=== PATIENT | female | born 1980 | race Caucasian/White ===

== ENCOUNTER 2016-08-14 14:32 | Emergency (ER) | payer OTHER ==
[~2016-08-14] VITALS: Ht 172.7 cm; Wt 93.4 kg
[~2016-08-14 14:32] MED LIST: CYCLOBENZAPRINE10 M1 PO; GABAPENTIN300 M2 PO; METHYLPREDNISOLO4 M2 PO; NAPROXEN500 M2 PO; TRAMADOL HCL50 M1 PO; TRAZODONE HCL50 M1 PO
--- NOTE | 2016-08-14 15:47 | ED GI/GU/ABDOMINAL COMPLAINT ---
History of Present Illness General Chief Complaint: Nausea, Vomiting, Diarrhea Stated Complaint: N/V/D Source: patient Exam Limitations: no limitations Vital Signs & Intake/Output Vital Signs & Intake/Output Vital Signs Date Time Temp Pulse Resp B/P Pulse O2 O2 Flow FiO2 Ox Delivery Rate 08/14 2218 97.5 76 18 106/58 98 Room Air 08/14 1838 97.5 73 18 104/57 98 08/14 1438 97.1 100 18 120/76 98 Room Air Allergies Coded Allergies: amoxicillin (Intermediate, GI UPSET 04/05/16) benzonatate (From TESSALON PERLES) (Intermediate, OVER-SEDATED 04/05/16) hydrocodone (From VICODIN) (Intermediate, GI UPSET 04/05/16) Triage Note: PT COMPLAINS OF N/V SINCE YESTERDAY.STATES THAT SHE MISSED HER PERIOD LAST WEDNESDAY. Triage Nurses Notes Reviewed? yes LMP (ages 10-50): 07/06/16 ? Y Is pt currently ? No HPI: Patient is a 36 year old female presents complaining of nausea, vomiting, diarrhea onset yesterday morning. Vomiting every 20-30 minutes since onset. 2- 3 episodes of diarrhea since onset. Diarrhea is a pale color. Unable to keep anything down since onset. Nausea is currently severe. Mild improvement with a dose of zofran yesterday that was left over from previous prescription. Burning left upper quadrant pain onset after patient began vomiting. Patient has not been able to urinate today. LMP 07/06/16. Denies fevers, sick contacts, recent travel, hematemesis, hematochezia. (ADONIS CAVANAUGH,) Reconcile Medications Naproxen 500 MG TABLET 1 TAB PO BID PAIN (Reported) Ondansetron HCl (Zofran) 4 MG TABLET 1 TAB PO Q6-8P PRN nausea Tramadol HCl 50 MG TABLET 1 TAB PO BIDP PRN pain (BALTA KEANE,KAILEY) Past History Travel History Traveled to [place] past 21 day No Medical History Any Pertinent Medical History? 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 No (MICHAEL ROYAL) Review of Systems Review of Systems Constitutional: Reports: malaise, weakness. Denies: chills, fever. EENTM: Reports: no symptoms. Respiratory: Denies: cough, short of breath. Cardiovascular: Denies: chest pain. GI: Reports: see HPI. Genitourinary: Reports: no symptoms. Denies: dysuria, hematuria. Musculoskeletal: Reports: back pain (chronic). Skin: Reports: no symptoms. Neurological/Psychological: Reports: no symptoms. Hematologic/Endocrine: Reports: no symptoms. Immunologic/Allergic: Reports: no symptoms. (MICHAEL ROYAL) Physical Exam Physical Exam General Appearance: alert, awake Head: atraumatic, normal appearance Eyes: Bilateral: normal appearance, PERRL, EOMI. Ears, Nose, Throat, Mouth: hearing grossly normal, dry mucous membranes Neck: normal inspection, supple, full range of motion Respiratory: normal breath sounds, no respiratory distress, lungs clear Cardiovascular: mild tachycardia, regular rhythm, no appreciable murmur Gastrointestinal: normal bowel sounds, soft, non-tender, negative White sign, negative McBurney's point tenderness, negative Rovsing sign Back: normal inspection, normal range of motion Extremities: normal range of motion Neurologic/Psych: no motor/sensory deficits, awake, alert, oriented x 3, normal mood/affect Skin: intact, normal color, warm/dry Core Measures ACS in differential dx? No Severe Sepsis Present: No Septic Shock Present: No (MICHAEL ROYAL) Progress Differential Diagnosis: , ECTOPIC , DEHYDRATION, GASTROENTERITIS, INTRA-ABDOMINAL INFECTION Plan of Care: Orders Procedure Date/time Status Add-on Test (ER Only) 08/14 1706 Active HUMAN BETA HCG TITRE 08/14 1630 Complete Add-on Test (ER Only) 08/14 1555 Active URINALYSIS 08/14 1555 Complete LIPASE 08/14 1550 Complete HUMAN BETA HCG SCREEN 08/14 1550 Complete COMPREHENSIVE METABOLIC PANEL 08/14 1550 Complete CBC WITHOUT DIFFERENTIAL 08/14 1550 Complete Laboratory Tests 08/14/16 1716: Urinalysis LIGHT H, Urine Color YEL, Urine Clarity HAZY H, Urine pH 6.5, Ur Specific Hunt 1.025, Urine Protein 100 H, Urine Ketones >=80, Urine Nitrite NEG, Urine Bilirubin NEG@ICTO, Urine Urobilinogen 1.0, Ur Leukocyte Esterase NEG , Ur Microscopic SEDIMENT EXAMINED, Urine RBC RARE, Urine WBC 1-3 H, Ur Epithelial Cells MOD H, Urine Bacteria MOD H, Urine Mucus MANY H, Urine Hemoglobin NEG, Urine Glucose NEG 08/14/16 1630: Anion Gap 17 H, Estimated GFR > 60, BUN/Creatinine Ratio 30.0 H, Glucose 126 H, Calcium 10.0, Total Bilirubin 0.9, AST 28, ALT 46, Alkaline Phosphatase 52, Total Protein 8.3 H, Albumin 4.9, Globulin 3.4, Albumin/Globulin Ratio 1.4, Lipase 39, Beta HCG, Quant 35286.0, Total Beta HCG POSITIVE, CBC w Diff NO MAN DIFF REQ, RBC 4.98, MCV 88.1, MCH 30.0, RDW 13.6, MPV 7.4, Gran % 84.6 H, Lymphocytes % 12.0 L, Monocytes % 3.2, Eosinophils % 0, Basophils % 0.2, Absolute Granulocytes 13.2 H, Absolute Lymphocytes 1.9, Absolute Monocytes 0.5, Absolute Eosinophils 0, Absolute Basophils 0, PUBS MCHC 34.1 08/14/16 1440: Urine Test Cancelled Discussed with Dr. Patiño. 1735: Patient re-evaluated. Reports mild improvement in nausea. Results of labs discussed with patient. Additional zofran and IV fluids ordered. Patient reevaluated multiple times. After Reglan patient feeling significantly improved. Patient received 3 L of IV fluids in the emergency department. Patient tolerating oral fluids. No abdominal tenderness, no lower abdominal pain or signs of ectopic . 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 (MICHAEL ROYAL) Initial ED EKG: none (MICHAEL ROYAL) Departure Departure Disposition: HOME OR SELF CARE Condition: Stable Clinical Impression Primary Impression: Vomiting and diarrhea Secondary Impressions: Dehydration, Hyperemesis gravidarum Referrals: LENNOX KEANE,GENESIS Robles (PCP/Family) Additional Instructions: Clear liquid diet for the next 12-24 hours, then slowly advance your diet as tolerated. Follow up with your TOOLER next week for further evaluation. Call Wednesday for appointment. Return to the ER if unable to stay hydrated, fevers, abdominal pain or worsening of symptoms. Departure Forms: Customer Survey General Discharge Information Prescriptions: Current Visit Scripts Ondansetron HCl (Zofran) 1 TAB PO Q6-8P PRN nausea #10 TAB Ref 1 (MICHAEL ROYAL) PA/STATION BAGGAGE PORTER Co-Sign Statement Statement: ED Attending supervision documentation- [] I saw and evaluated the patient. I have also reviewed all the pertinent lab results and diagnostic results. I agree with the findings and the plan of care as documented in the PA's/STATION BAGGAGE PORTER's documentation. [X] I have reviewed the ED Record and agree with the PA's/STATION BAGGAGE PORTER's documentation. [] Additions or exceptions (if any) to the PAs/STATION BAGGAGE PORTER's note and plan are summarized below: [] (BALTA KEANE,KAILEY)
[2016-08-14 16:42] LABS: ABSOLUTE BASOPHIL COUNT 0 /CUMM (0.0-0.2); ABSOLUTE EOSINOPHIL COUNT 0 /CUMM (0.0-0.7); ABSOLUTE GRANULOCYTE CT 13.2 /CUMM (1.4-6.5); ABSOLUTE LYMPH COUNT 1.9 /CUMM (1.2-3.4); ABSOLUTE MONOCYTE COUNT 0.5 /CUMM (0.10-0.60); BASOPHIL % 0.2 % (0.0-2.0); EOSINOPHIL % 0 % (0-5); GRANULOCYTE % 84.6 % (42.2-75.2); HEMATOCRIT 43.8 % (37-47); MEAN CORPUSCULAR HGB CONC 34.1 G/DL (33.0-37.0); MEAN CORPUSCULAR VOLUME 88.1 FL (81.0-99.0); MEAN PLATELET VOLUME 7.4 FL (7.4-10.4); PLATELET COUNT 378 /CUMM (130-400); RBC DISTRIBUTION WIDTH 13.6 % (11.5-14.5); RED BLOOD CELL CT 4.98 /CUMM (4.20-5.40); WHITE BLOOD CELL COUNT 15.6 /CUMM (4.8-10.8)
[2016-08-14] MEDS ORDERED: ZOFRAN4 M2 PO (21:42)
[2016-08-14 22:18] VITALS: BP 106/58
== END 2016-08-14 22:20 ==
LOC: ERH 14:32
PROVIDERS: Physician Assistant
DX: O21.1 Hyperemesis gravidarum with metabolic disturbance (principal); Z3A.00 Weeks of gestation of pregnancy not specified
CPT/HCPCS: 81001; 81025; 96361; 96374; 96375; 96376; J1200; J2405; J2765; J7042

== ENCOUNTER 2016-08-15 06:50 | Observation (INO) | payer OTHER ==
[~2016-08-15] VITALS: Ht 171.4 cm; Wt 93.0 kg
[~2016-08-15 06:50] MED LIST changes: +ZOFRAN4 M2 PO
--- NOTE | 2016-08-15 07:58 | ED GI/GU/ABDOMINAL COMPLAINT ---
History of Present Illness General Chief Complaint: General Adult Stated Complaint: +NV, 4 WEEKS PREG, SEEN HERE YESTERDAY FOR SAME Source: patient, old records Exam Limitations: no limitations Vital Signs & Intake/Output Vital Signs & Intake/Output Vital Signs Date Time Temp Pulse Resp B/P Pulse O2 O2 Flow FiO2 Ox Delivery Rate 08/15 1405 97.9 86 20 117/66 98 Room Air 08/15 1108 62 20 127/73 98 Room Air 08/15 0655 97.5 67 18 137/87 100 Room Air Room Air Allergies Coded Allergies: amoxicillin (Intermediate, GI UPSET 04/05/16) benzonatate (From TESSALON PERLES) (Intermediate, OVER-SEDATED 04/05/16) hydrocodone (From VICODIN) (Intermediate, GI UPSET 04/05/16) Reconcile Medications Ondansetron HCl (Zofran) 4 MG TABLET 1 TAB PO Q6-8P PRN nausea Triage Note: TRIAGE: 36 Y/O FEMALE RETURNS FROM VISIT YESTERDAY. REPORTS ROUGHLY 4 WEEKS . OBGYN: "[place] OF [place] WITH [facility]" . REPORTS "I HAVEN'T BEEN ABLE TO KEEP ANYTHING DOWN SINCE WEDNESDAY. THE ONLY TIME I FELT GOOD WAS WHEN I WAS ON THE IV WITH THE MEDS. NOW IT'S SO BAD AND I'M JUST DRY HEAVING." Triage Nurses Notes Reviewed? yes ? Y Is pt currently ? No Onset: Abrupt Duration: day(s): (FEW) Timing: multiple episodes today Quality/Severity: moderate, severe Associated Symptoms: abdominal pain, nausea/vomiting HPI: 36 year old female , presents to the ER with intractable nausea and vomiting. Had diarrhea that started , no BM since then. Reports inability to keep food or liquids down. Patient states that she could not keep the zofran down that was given to her yesterday. No bloody emesis, no abdominal pain. Past History Travel History Traveled to [place] past 21 day No Medical History Any Pertinent Medical History? 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 No Review of Systems Review of Systems Constitutional: Denies: chills, fever. EENTM: Reports: no symptoms. Respiratory: Denies: cough, short of breath. Cardiovascular: Denies: chest pain, palpitations. GI: Reports: nausea, vomiting. Denies: abdominal pain. Genitourinary: Reports: no symptoms. Musculoskeletal: Reports: no symptoms. Skin: Reports: no symptoms. Neurological/Psychological: Reports: no symptoms. Hematologic/Endocrine: Denies: bruising, bleeding, polyuria, polydipsia. Immunologic/Allergic: Reports: no symptoms. All Other Systems: Reviewed and Negative Physical Exam Physical Exam General Appearance: well developed/nourished Head: atraumatic Eyes: Bilateral: PERRL. Ears, Nose, Throat, Mouth: hearing grossly normal, moist mucous membrane Respiratory: normal breath sounds, chest non-tender, no respiratory distress Cardiovascular: regular rate/rhythm Peripheral Pulses: 2+ radial (R), 2+ radial (L) Gastrointestinal: normal bowel sounds, soft, non-tender, OBESE Extremities: normal range of motion Neurologic/Psych: no motor/sensory deficits, awake, alert, oriented x 3 Skin: intact, normal color, cyanosis Core Measures ACS in differential dx? No Severe Sepsis Present: No Septic Shock Present: No Progress Differential Diagnosis: HYPEREMESIS, DERRICK, DEHYDRATION Plan of Care: Orders Procedure Date/time Status Clear Liquid Diet 08/15 D Active EKG 08/15 1613 Active Patient Data 08/[address] in observation 08/15 1427 Active Vital Signs 08/15 1427 Active Code Status 08/15 1427 Active LIPASE 08/15 1140 Complete COMPREHENSIVE METABOLIC PANEL 08/15 1140 Complete CBC WITHOUT DIFFERENTIAL 08/15 1140 Complete URINALYSIS 08/15 0757 Complete Intake & Output 08/15 0654 Active Current Medications Sig/Ata Start time Last Medication Dose Stop Time Status Admin Ondansetron HCl 8 MG Q8 08/15 2200 AC (Zofran) Diphenhydramine HCl 25 MG Q6 08/15 1800 AC (Benadryl) Metoclopramide HCl 10 MG Q12P PRN 08/15 1515 AC (Reglan) Laboratory Tests 08/15/16 1215: Anion Gap 10, Estimated GFR > 60, BUN/Creatinine Ratio 20.0, Glucose 97, Calcium 8.2 L, Total Bilirubin 0.6, AST 34, ALT 52, Alkaline Phosphatase 38, Total Protein 6.3, Albumin 3.6, Globulin 2.7, Albumin/Globulin Ratio 1.3, Lipase 52, CBC w Diff NO MAN DIFF REQ, RBC 4.05 L, MCV 88.7, MCH 29.9, RDW 13.3, MPV 7.4, Gran % 73.4, Lymphocytes % 22.2, Monocytes % 4.1, Eosinophils % 0.1, Basophils % 0.2, Absolute Granulocytes 7.5 H, Absolute Lymphocytes 2.3, Absolute Monocytes 0.4, Absolute Eosinophils 0, Absolute Basophils 0, PUBS MCHC 33.8 08/15/16 1038: Urinalysis LIGHT H, Urine Color YEL, Urine Clarity CLEAR, Urine pH 6.5, Ur Specific Thomson 1.020, Urine Protein TRACE H, Urine Ketones >=80, Urine Nitrite NEG, Urine Bilirubin NEG, Urine Urobilinogen >=8.0 H, Ur Leukocyte Esterase NEG, Ur Microscopic SEDIMENT EXAMINED, Urine RBC RARE, Urine WBC RARE, Ur Epithelial Cells FEW, Urine Bacteria FEW H, Urine Mucus RARE, Urine Hemoglobin NEG, Urine Glucose NEG IV FLUIDS, ZOFRAN, OABS ORDERED. REPEAT FLUDIS, REGLAN ORDERED. 10:15 U/S ORDERED. STILL NAUSEATED. IV PHENERGEN ORDERED. FLUIDS SWITCHED TO D5NS. MULTIPLE ROUNDS OF IV ANTIEMETICS GIVEN, SEVEREAL FLUID BOLUSES. PATIENT CONTINUES NOT TO BE ABLE TO TOLERATE PO FLUIDS. D/W DR SINHA. WILL PLACE IN OBSERVATION. (BALTA KEANE,KAILEY) Diagnostic Imaging: Viewed by Me: Ultrasound. Discussed w/RAD: Ultrasound. Radiology Impression: PATIENT: DEDRICK CORONA PRESENT AGE: 36 PATIENT ACCOUNT NO: [id number] : 80 LOCATION: [facility] ORDERING PHYSICIAN: KAILEY GIFFORD MD SERVICE DATE: 08/15/16 EXAM TYPE: US - US TRANSVAG EXAMINATION: US , LESS THAN 14 WEEKS INDICATION: 36-year-old female 4 weeks , presented with severe nausea, vomiting. LMP on 07/08/2016, MEHNAZ on 04/14/2017. TECHNIQUE: Real-time ultrasound of was performed using both transabdominal as well as transvaginal approach, accessing grayscale appearance and color Doppler flow. COMPARISON: None FINDINGS: Multiple sonographic images of the pelvis demonstrates a single live intrauterine . heart rate of 118 beats per minute is detected. A pole and the gestational sac is visualized. anatomy is difficult to evaluate secondary to small size of the fetus. The crown-rump length is 0.39 cm ( 6 weeks 1 days). A yolk sac is visualized, measures 0.47 cm. The gestational sac maximum in diameter is 2.3 cm. This corresponds to a mean age of 6 weeks and 3 days with estimated and expected date of delivery on 2016. The right ovary measures 3.0 x 2.5 x 2.4 cm, volume of 9.5 mL. The left measures 3.3 x 2.1 x 2.7 cm, volume of 10.5 mL There is a 1.5 cm corpus luteal cyst surrounding thick wall in the left ovary. Normal Arterial and venous blood flow is present bilaterally. There is no pelvic free fluid. IMPRESSION: 1. Single live intrauterine with mean age of 6 weeks and 3 days, with expected date of delivery 04/08/2017. Secondary to the early stage of , anatomy is difficult to evaluate and further measurements for a more comprehensive age estimate cannot be taken. Recommend returning for repeat ultrasound at approximately age 17-19 weeks. 2. No evidence of ectopic . DICTATED BY: MARLENI BRYANT MD DATE/TIME DICTATED:08/15/161118 NAIL STICKER:VANESSA DATE/TIME TRANSCRIBED:08/15/161118 CONFIDENTIAL, DO NOT COPY WITHOUT APPROPRIATE AUTHORIZATION. <Electronically signed in Other Vendor System> SIGNED BY: MARLENI BRYANT MD 08/15/16 1141 Initial ED EKG: NSR Departure Departure Time of Disposition: 8 Disposition: STILL A PATIENT Condition: Stable Clinical Impression Primary Impression: Hyperemesis Secondary Impressions: Intractable nausea and vomiting Referrals: LENNOX KEANE,GENESIS Robles (PCP/Family) Departure Forms: Customer Survey General Discharge Information Observation Note Spoke With: PRISCILA SINHA DO Physician Advisor Notified: JACKSON KEANE,KRUNAL [facility] [address] Patient In: Non-ED OBS Care Area Rationale for Observation: My rational for observation is as follows [IV FLUIDS, IV ANTIEMETICS, MONITOR I/ O, MONITOR ELECTROLYTES].
--- NOTE | 2016-08-15 11:41 | ULTRASOUND REPORT ---
EXAMINATION: US , LESS THAN 14 WEEKS INDICATION: 36-year-old female 4 weeks , presented with severe nausea, vomiting. LMP on 07/08/2016, MEHNAZ on 04/14/2017. TECHNIQUE: Real-time ultrasound of was performed using both transabdominal as well as transvaginal approach, accessing grayscale appearance and color Doppler flow. COMPARISON: None FINDINGS: Multiple sonographic images of the pelvis demonstrates a single live intrauterine . heart rate of 118 beats per minute is detected. A pole and the gestational sac is visualized. anatomy is difficult to evaluate secondary to small size of the fetus. The crown-rump length is 0.39 cm ( 6 weeks 1 days). A yolk sac is visualized, measures 0.47 cm. The gestational sac maximum in diameter is 2.3 cm. This corresponds to a mean age of 6 weeks and 3 days with estimated and expected date of delivery on 04/08/2017. The right ovary measures 3.0 x 2.5 x 2.4 cm, volume of 9.5 mL. The left measures 3.3 x 2.1 x 2.7 cm, volume of 10.5 mL There is a 1.5 cm corpus luteal cyst surrounding thick wall in the left ovary. Normal Arterial and venous blood flow is present bilaterally. There is no pelvic free fluid. IMPRESSION: 1. Single live intrauterine with mean age of 6 weeks and 3 days, with expected date of delivery 04/08/2017. Secondary to the early stage of , anatomy is difficult to evaluate and further measurements for a more comprehensive age estimate cannot be taken. Recommend returning for repeat ultrasound at approximately age 17-19 weeks. 2. No evidence of ectopic .
[2016-08-15 12:46] LABS: ABSOLUTE BASOPHIL COUNT 0 /CUMM (0.0-0.2); ABSOLUTE EOSINOPHIL COUNT 0 /CUMM (0.0-0.7); ABSOLUTE GRANULOCYTE CT 7.5 /CUMM (1.4-6.5); ABSOLUTE LYMPH COUNT 2.3 /CUMM (1.2-3.4); ABSOLUTE MONOCYTE COUNT 0.4 /CUMM (0.10-0.60); BASOPHIL % 0.2 % (0.0-2.0); EOSINOPHIL % 0.1 % (0-5); GRANULOCYTE % 73.4 % (42.2-75.2); MEAN CORPUSCULAR HGB 29.9 PG (27.0-31.0); MEAN CORPUSCULAR HGB CONC 33.8 G/DL (33.0-37.0); MEAN CORPUSCULAR VOLUME 88.7 FL (81.0-99.0); MEAN PLATELET VOLUME 7.4 FL (7.4-10.4); PLATELET COUNT 287 /CUMM (130-400); RBC DISTRIBUTION WIDTH 13.3 % (11.5-14.5); RED BLOOD CELL CT 4.05 /CUMM (4.20-5.40); WHITE BLOOD CELL COUNT 10.3 /CUMM (4.8-10.8)
[2016-08-15 12:55] LABS: HEMATOCRIT 35.9 % (37-47)
[2016-08-15 16:57] VITALS: BP 140/98
[2016-08-15 17:08] VITALS: BP 144/84
--- NOTE | 2016-08-15 19:52 | History & Physical ---
General Information and HPI MD Statement: I have seen and personally examined DEDRICK CORONA and documented this H&P. The patient is a 36 year old female at [6] weeks and [] days gestation who presented with a chief complaint of [INTRACTABLE NAUSEA AND VOMITING]. Source of Information: patient Exam Limitations: no limitations History of Present Illness: 36 YEAR OLD @ 6 WEEKS BY US PRESENTS FOR PERSISTENT NAUSEA AND VOMITING. WAS SEEN [facility] YESTERDAY AND WAS REHYDRATED AND FELT BETTER WITH ANTIEMETICS. SHE HOWEVER RETURNED TODAY AND DESPITE FLUID HYDRATION AND ANTIEMETICS, WAS UNABLE TO TOLERATE PO CHALLENGE. PT WAS ADMITTED FOR 24HOUR OBSERVATION. SHE RELAYS THAT HAS HAD 2 PREVIOUS NORMAL TERM PREGNANCIES IN PAST. DENIES SIGNIFICANT NAUSEA AND VOMITING WITH THOSE PREGNANCIES OR ANY OTHER COMPLICATIONS. SHE HAS DELIVERED AT [facility] IN THE PAST. SHE HAS A 10 AND 14 YEAR OLD. SHE ADMITS THAT SHE WAS CONSIDERING TERMINATION OF THIS . 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 EENTM: Reports: no symptoms. Cardiovascular: Reports: no symptoms. Respiratory: Reports: no symptoms. GI: Reports: see HPI, nausea, vomiting. Denies: abdominal pain, bloating, constipation, diarrhea, distention, bowel incontinence, melena, bloody stool, changes in stool, steatorrhea. Genitourinary: Reports: no symptoms. Musculoskeletal: Reports: no symptoms. Skin: Reports: no symptoms. Neurological/Psychological: Reports: no symptoms. Hematologic/Endocrine: Reports: no symptoms. Immunologic/Allergic: Reports: no symptoms. All Other Systems: Reviewed and Negative Exam & Diagnostic Data Last 24 Hrs of Vital Signs/I&O Vital Signs Date Time Temp Pulse Resp B/P Pulse O2 O2 Flow FiO2 Ox Delivery Rate 08/15 1708 144/84 08/15 1657 98.9 63 19 140/98 92 Room Air 08/15 1405 97.9 86 20 117/66 98 Room Air 08/15 1108 62 20 127/73 98 Room Air 08/15 0655 97.5 67 18 137/87 100 Room Air Room Air Last 24 Hours I&Os 08/15 1600 08/15 0800 08/15 0000 Intake Total 1200 Output Total Balance 1200 Intake, IV 1200 Patient 205 lb Weight Laboratory Tests 08/15/16 1215: Anion Gap 10, Estimated GFR > 60, BUN/Creatinine Ratio 20.0, Glucose 97, Calcium 8.2 L, Total Bilirubin 0.6, AST 34, ALT 52, Alkaline Phosphatase 38, Total Protein 6.3, Albumin 3.6, Globulin 2.7, Albumin/Globulin Ratio 1.3, Lipase 52, CBC w Diff NO MAN DIFF REQ, RBC 4.05 L, MCV 88.7, MCH 29.9, RDW 13.3, MPV 7.4, Gran % 73.4, Lymphocytes % 22.2, Monocytes % 4.1, Eosinophils % 0.1, Basophils % 0.2, Absolute Granulocytes 7.5 H, Absolute Lymphocytes 2.3, Absolute Monocytes 0.4, Absolute Eosinophils 0, Absolute Basophils 0, PUBS MCHC 33.8 08/15/16 1038: Urinalysis LIGHT H, Urine Color YEL, Urine Clarity CLEAR, Urine pH 6.5, Ur Specific [place] 1.020, Urine Protein TRACE H, Urine Ketones >=80, Urine Nitrite NEG, Urine Bilirubin NEG, Urine Urobilinogen >=8.0 H, Ur Leukocyte Esterase NEG, Ur Microscopic SEDIMENT EXAMINED, Urine RBC RARE, Urine WBC RARE, Ur Epithelial Cells FEW, Urine Bacteria FEW H, Urine Mucus RARE, Urine Hemoglobin NEG, Urine Glucose NEG Orders Procedure Date/time Status HEPATIC FUNCTION PANEL 08/17 799 Active CBC WITHOUT DIFFERENTIAL 08/17 799 Active BASIC ELECTROLYTES PLUS BUN&CR 08/17 799 Active Nothing by Mouth 08/15 D Active Vital Signs 08/15 1654 Active Teach/Educate 08/15 165 Active Pain Treatment and Response 08/15 165 Active Nutritional Intake, Monitor 08/15 1654 Active Isolation 08/15 1654 Active Intake & Output 08/15 1654 Active Patient Care Conference 08/15 1654 Active Activity/Ambulation 08/15 1654 Active EKG 08/15 1613 Active Patient Data 08/[address] in observation 08/15 1427 Active Vital Signs 08/15 1427 Active Code Status 08/15 1427 Active LIPASE 08/15 1140 Complete COMPREHENSIVE METABOLIC PANEL 08/15 1140 Complete CBC WITHOUT DIFFERENTIAL 08/15 1140 Complete URINALYSIS 08/15 0757 Complete Intake & Output 08/15 0654 Active Nursing Misc 08/15 UNK Active Vital Signs Date Time Temp Pulse Resp B/P Pulse O2 O2 Flow FiO2 Ox Delivery Rate 08/15 1708 144/84 08/15 1657 98.9 63 19 140/98 92 Room Air 08/15 1405 97.9 86 20 117/66 98 Room Air 08/15 1108 62 20 127/73 98 Room Air 08/15 0655 97.5 67 18 137/87 100 Room Air Room Air Intake & Output 08/15 1600 08 0800 08/15 0000 Intake Total 1200 Output Total Balance 1200 Intake, IV 1200 Patient 205 lb Weight Single live intrauterine with mean age of 6 weeks and 3 days, with expected date of delivery 04/08/2017. Secondary to the early stage of , anatomy is difficult to evaluate and further measurements for a more comprehensive age estimate cannot be take Obstetric Exam Wgt Gained During : NA Pelvimetry: NA Dilation (cm): 0 Effacement (%): 0 Station: 0 Membranes: unknown Fluid: unknown Fundal Height (cm): 0 Multiple Gestation? No Contractions: N/A Patient for Induction? No Physical Exam General Appearance Alert, Oriented X3, Cooperative, APPEARS TIRED AND RESTING IN BED Skin No Rashes, No Breakdown, No Significant Lesion Cardiovascular Regular Rate, Normal S1, Normal S2, No Murmurs Lungs Clear to Auscultation, Normal Air Movement Abdomen Normal Bowel Sounds, Soft, No Tenderness, No Hepatospenomegaly, No Masses Neurological Normal Gait, Normal Speech, Strength at 5/5 X4 Ext, Normal Tone Extremities No Clubbing, No Cyanosis, No Edema, Normal Pulses, No Tenderness/ Swelling Labs Blood Type & Rh: N/A Antibody Screen: N/A Hct/Hgb & Platelets #1: N/A Hct/Hgb & Platelets #2: N/A Rubella: N/A VDRL #1: N/A VDRL #2: N/A HbsAg: N/A HIV #1: N/A HIV #2 N/A 1 Hr PG: N/A Group B Strep: N/A Initial Ultrasound: SEE REPORT Anatomy Ultrasound: NA Genetic Testing: N/A Assessment/Plan Assessment/Plan: 36 YEAR OLD @ 6 WEEKS ADMITTED FOR HYPEREMESIS GRAVIDARUM. INTRACTABLE NAUSEA VOMITING, SEEN IN ER X 2 IN PAST 2 DAYS. ADMITTED FOR OBSERVATION. PLAN ZOFRAN 8MG AROUND THE CLOCK, ADDITIONAL ANTIEMETICS PRN, PEPCID SCHEDULED, BENADRYL SCHEDULED, NPO. PO CHALLENGE IN THE AM . As Ranked By This Provider Problem List: 1. Hyperemesis gravidarum 2. Intractable nausea and vomiting Core Measures/Miscellaneous Venous Thromboembolism VTE Risk Factors: / VTE Contraindications: No Contraindications VTE Diagnosis: No Beta Selina Is Beta Selina a Home Med? No Antibiotics Is Patient on Antibiotics? No Attending MD Review Statement Attending Statement Attending MD Statement: examined this patient, discussed with family, discussed w/nursing
[2016-08-15 22:21] VITALS: BP 138/98
[2016-08-16 06:00] VITALS: BP 126/80
[2016-08-16 06:57] VITALS: BP 128/84
[2016-08-16 08:35] LABS: ABSOLUTE BASOPHIL COUNT 0 /CUMM (0.0-0.2); ABSOLUTE EOSINOPHIL COUNT 0 /CUMM (0.0-0.7); ABSOLUTE LYMPH COUNT 2.9 /CUMM (1.2-3.4); ABSOLUTE MONOCYTE COUNT 0.5 /CUMM (0.10-0.60); BASOPHIL % 0.3 % (0.0-2.0); EOSINOPHIL % 0.3 % (0-5); GRANULOCYTE % 63.6 % (42.2-75.2); HEMATOCRIT 37.4 % (37-47); MEAN CORPUSCULAR HGB CONC 33.2 G/DL (33.0-37.0); MEAN CORPUSCULAR VOLUME 90.4 FL (81.0-99.0); PLATELET COUNT 244 /CUMM (130-400); RBC DISTRIBUTION WIDTH 13.4 % (11.5-14.5); RED BLOOD CELL CT 4.13 /CUMM (4.20-5.40); WHITE BLOOD CELL COUNT 9.5 /CUMM (4.8-10.8)
--- NOTE | 2016-08-16 10:17 | PN- OBGYN ---
Surgical Brief Attending Note Brief Attending Note: HD#1 pt is resting in bed, c/o feeld better, no nausea , vomitting am, tolerate regular breakfast. PE: VSS Abdomen: sof, nontender. Ext: DCT (-) A/P: 36yo, 6 wks IUPby U/S, hyperemesis 1. encourage small , frequnt meals. PO hydration 2. pt c/o she and her decide to terminate preganacy, will make arrangement tomorrow 3. zofran for nausea as needed 4. will d/c home. 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 precautions given , she understand.
--- NOTE | 2016-08-16 10:44 | Discharge Summary ---
Visit Information Visit Dates Admission Date: 08/15/16 Discharge Date: 08/16/2016 Hospital Course Course Attending Physician: PRISCILA SINHA DO Primary Care Physician: GENESIS HIGH MD Hospital Course: 36yo, admitted for observation due to hyperemesis gravidarum. u/S in ER show IUP at 6 wks. pt had severe nausea, vomitting that reqires IV hydration. During the hospitral stay, she received IV hydration, zofran for nausea etc, uneventful overnight, this am, she feels much better, symptoms improved, she tolerate regular breakfast am. denies any pain or other issues. will d/c home today Complications: none Allergies: Coded Allergies: amoxicillin (Intermediate, GI UPSET 04/05/16) benzonatate (From TESSALON PERLES) (Intermediate, OVER-SEDATED 04/05/16) hydrocodone (From VICODIN) (Intermediate, GI UPSET 04/05/16) Significant Procedures: none Disposition Summary Disposition Principal Diagnosis: 6wks IUP hyperemesis gravidarum Additional Diagnosis: AMA Discharge Disposition: home or self care Discharge Instructions General Discharge Information Code Status: Full Code Patient's Diet: regular as tolerated Patient's Activity: as tolerated Follow-Up Instructions/Appts: will f/u with 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
== END 2016-08-16 11:27 ==
LOC: ENRESERVDT → ENRESERVTM → ERH 06:50 → ENPENDDIS 14:27 → ERHI 14:27 → 2NB 14:27
PROVIDERS: Emergency Medicine; ADMIT Obstetrics & Gynecology
DX: O21.1 Hyperemesis gravidarum with metabolic disturbance (principal); Z3A.01 Less than 8 weeks gestation of pregnancy
CPT/HCPCS: 6040; 36415; 76817; 81001; 82436; 93005; 93010; 96361; 96365; 96375; 96376; G0378; J1200; J2405; J2550; J2765; J3101; J7042